=== PATIENT | male | born 1950 | race African-American/Black ===

== ENCOUNTER 2022-04-28 15:08 | Inpatient (IN) | payer OTHER ==
[2022-04-28 15:54] VITALS: BMI 26.8
[2022-04-28] MEDS ORDERED: guaiFENesin 200 MG/10 ML 10 ML UNIT-DOSE CUPS PO PRN (17:18)
[2022-04-28] MEDS ORDERED: BENZOCAINE/MENTHOL (CHLORASEPTIC ) LOZENGE MM PRN (17:18)
[2022-04-28] MEDS ORDERED: ONDANSETRON *ODT* 4 MG TABLET SL PRN (17:18)
[2022-04-28] MEDS ORDERED: MAG HYDROX/AL HYDROX/SIMETH 30 ML UNIT-DOSE CUP PO PRN (17:18)
[2022-04-28] MEDS ORDERED: MAGNESIUM HYDROX 2400MG/30ML ORAL SUSPENSION 30 ML CUP PO PRN (17:18)
[2022-04-28] MEDS ORDERED: LOPERAMIDE HCL 2 MG CAPSULE PO PRN (17:18)
[2022-04-28] MEDS ORDERED: BISMUTH SUBSALICYLATE 524 MG/30 ML PO PRN (17:18)
[2022-04-28] MEDS ORDERED: ACETAMINOPHEN 325 MG TABLET (FP) PO PRN (17:18)
[2022-04-28] MEDS ORDERED: P-EPHED 60MG/TRIPROLIDI 2.5MG TABLET PO PRN (17:18)
[2022-04-28] MEDS ORDERED: DICYCLOMINE HCL 10 MG CAPSULE PO PRN (17:18)
[2022-04-28] MEDS ORDERED: MAGNESIUM CITRATE 300 ML BOTTLE PO PRN (17:18)
[2022-04-28] MEDS ORDERED: methaDONE HCL 10 MG TABLET (FOR DETOX USE ONLY) PO ONE (17:22)
[2022-04-28] MEDS ORDERED: cloNIDine HCL 0.1 MG TABLET PO PRN (17:22)
[2022-04-28] MEDS ORDERED: IBUPROFEN 600 MG TABLET (FP) PO ONE (22:56)
[2022-04-28] MEDS ORDERED: methaDONE HCL 10 MG TABLET (FOR DETOX USE ONLY) ONE (22:56)
[2022-04-28] MEDS: IBUPROFEN 600 MG TABLET (FP) PO PRN (23:00)
[2022-04-28] MEDS: MELATONIN 5 MG TABLETS PO PRN (23:00)
[2022-04-28] MEDS: THIAMINE HCL 100 MG TABLET (FP) PO SCH (23:00)
[2022-04-29] MEDS ORDERED: IBUPROFEN 400 MG TABLET (FP) PO ONE (07:02)
[2022-04-29] MEDS: IBUPROFEN 400 MG TABLET (FP) PO PRN (07:04)
[2022-04-29] MEDS: glipiZIDE 5 MG TABLET (FP) PO SCH (07:05)
[2022-04-29] MEDS: metFORMIN HCL 500 MG TABLET (FP) PO SCH ×2 (07:05→18:40)
[2022-04-29] MEDS: INSULIN SLIDING SCALE (NOVOLOG) 1 VIAL SQ SCH ×4 (07:05→22:09)
[2022-04-29] MEDS ORDERED: ACETAMINOPHEN 325 MG TABLET (FP) ONE ×2 (08:13→08:14)
[2022-04-29] MEDS: ACETAMINOPHEN 325 MG TABLET (FP) PO PRN (08:19)
[2022-04-29] MEDS: METHOCARBAMOL 500 MG TABLET PO SCH ×2 (09:14→22:08)
[2022-04-29] MEDS ORDERED: amLODIPine BESYLATE 5 MG TABLET (FP) ONE (10:03)
[2022-04-29] MEDS ORDERED: methaDONE HCL 10 MG TABLET (FOR DETOX USE ONLY) ONE (10:03)
[2022-04-29] MEDS ORDERED: LISINOPRIL 10 MG TABLET ONE (10:04)
[2022-04-29] MEDS: PRENATAL VITAMINS W/ FOLIC ACID TABLET (FP) PO SCH (10:15)
[2022-04-29] MEDS: amLODIPine BESYLATE 10 MG TABLET (FP) PO SCH (10:15)
[2022-04-29] MEDS: LISINOPRIL 20 MG TABLET PO SCH (10:16)
[2022-04-29 10:45] LABS: ALBUMIN 3.5 g/dl (3.4-5.0); CALCIUM 9.4 mg/dL (8.5-10.1); HEMATOCRIT 38.5 % (35.4-49); HEMOGLOBIN 12.8 GM/dL (11.7-16.9); MCHC 33.1 g/dl (32.0-35.9); MEAN CELL VOLUME 78.3 fl (80-96); MEAN PLT VOLUME 7.7 fl (7.5-11.1); PLATELET COUNT 244 10^3/uL (134-434); RBC 4.92 M/mm3 (4.00-5.60); RDW 13.9 % (11.9-15.9); WHITE BLOOD COUNT 3.7 K/mm3 (4.0-10.0)
[2022-04-29 10:46] LABS: BLOOD UREA NITROGEN 7.8 mg/dL (7-18)
[2022-04-29 10:49] LABS: CREATININE 0.8 mg/dL (0.55-1.3)
[2022-04-29 10:50] LABS: BILIRUBIN,TOTAL 0.6 mg/dL (0.2-1); TOT PROT 7.1 g/dl (6.4-8.2)
[2022-04-29] MEDS: PANTOPRAZOLE 40 MG TABLET PO SCH (11:26)
[2022-04-29] MEDS: hydrOXYzine PAMOATE 25 MG CAPSULE (FP) PO PRN (18:42)
[2022-04-29] MEDS: ATORVASTATIN CA 10 MG TABLET (FP) PO SCH (22:08)
[2022-04-29] MEDS: THIAMINE HCL 100 MG TABLET (FP) PO SCH (22:08)
[2022-04-29] MEDS: MELATONIN 5 MG TABLETS PO PRN (22:09)
[2022-04-30] MEDS: ACETAMINOPHEN 325 MG TABLET (FP) PO PRN (05:14)
[2022-04-30] MEDS: INSULIN SLIDING SCALE (NOVOLOG) 1 VIAL SQ SCH ×4 (07:37→22:14)
[2022-04-30] MEDS: glipiZIDE 5 MG TABLET (FP) PO SCH (07:40)
[2022-04-30] MEDS: metFORMIN HCL 500 MG TABLET (FP) PO SCH ×2 (07:40→17:18)
[2022-04-30] MEDS ORDERED: methaDONE HCL 10 MG TABLET (FOR DETOX USE ONLY) PO ONE (10:00)
[2022-04-30] MEDS: amLODIPine BESYLATE 10 MG TABLET (FP) PO SCH (10:10)
[2022-04-30] MEDS: LISINOPRIL 20 MG TABLET PO SCH (10:10)
[2022-04-30] MEDS: PRENATAL VITAMINS W/ FOLIC ACID TABLET (FP) PO SCH (10:11)
[2022-04-30] MEDS: hydrOXYzine PAMOATE 25 MG CAPSULE (FP) PO PRN (10:11)
[2022-04-30] MEDS: PANTOPRAZOLE 40 MG TABLET PO SCH (10:11)
[2022-04-30] MEDS: METHOCARBAMOL 500 MG TABLET PO SCH ×2 (10:11→22:14)
[2022-04-30] MEDS: IBUPROFEN 400 MG TABLET (FP) PO PRN (17:21)
[2022-04-30] MEDS: ATORVASTATIN CA 10 MG TABLET (FP) PO SCH (22:14)
[2022-04-30] MEDS: THIAMINE HCL 100 MG TABLET (FP) PO SCH (22:14)
[2022-04-30] MEDS: MELATONIN 5 MG TABLETS PO PRN (22:15)
[2022-05-01] MEDS: IBUPROFEN 600 MG TABLET (FP) PO PRN ×2 (05:30→16:59)
[2022-05-01] MEDS: INSULIN SLIDING SCALE (NOVOLOG) 1 VIAL SQ SCH ×4 (07:10→22:24)
[2022-05-01] MEDS: glipiZIDE 5 MG TABLET (FP) PO SCH (07:11)
[2022-05-01] MEDS: metFORMIN HCL 500 MG TABLET (FP) PO SCH ×2 (07:12→16:59)
[2022-05-01] MEDS: PRENATAL VITAMINS W/ FOLIC ACID TABLET (FP) PO SCH (10:08)
[2022-05-01] MEDS: amLODIPine BESYLATE 10 MG TABLET (FP) PO SCH (10:09)
[2022-05-01] MEDS: LISINOPRIL 20 MG TABLET PO SCH (10:09)
[2022-05-01] MEDS: METHOCARBAMOL 500 MG TABLET PO SCH ×2 (10:09→21:56)
[2022-05-01] MEDS: PANTOPRAZOLE 40 MG TABLET PO SCH (10:09)
[2022-05-01] MEDS: hydrOXYzine PAMOATE 25 MG CAPSULE (FP) PO PRN ×2 (10:09→16:59)
[2022-05-01] MEDS: MELATONIN 5 MG TABLETS PO PRN (21:56)
[2022-05-01] MEDS: THIAMINE HCL 100 MG TABLET (FP) PO SCH (21:56)
[2022-05-01] MEDS: ATORVASTATIN CA 10 MG TABLET (FP) PO SCH (21:56)
[2022-05-02] MEDS: metFORMIN HCL 500 MG TABLET (FP) PO SCH ×2 (06:49→16:50)
[2022-05-02] MEDS: glipiZIDE 5 MG TABLET (FP) PO SCH (06:49)
[2022-05-02] MEDS: IBUPROFEN 400 MG TABLET (FP) PO PRN (06:59)
[2022-05-02] MEDS: INSULIN SLIDING SCALE (NOVOLOG) 1 VIAL SQ SCH ×4 (07:00→22:22)
[2022-05-02] MEDS: PRENATAL VITAMINS W/ FOLIC ACID TABLET (FP) PO SCH (10:50)
[2022-05-02] MEDS: PANTOPRAZOLE 40 MG TABLET PO SCH (10:51)
[2022-05-02] MEDS: LISINOPRIL 20 MG TABLET PO SCH (10:51)
[2022-05-02] MEDS: METHOCARBAMOL 500 MG TABLET PO SCH ×2 (10:51→22:22)
[2022-05-02] MEDS: amLODIPine BESYLATE 10 MG TABLET (FP) PO SCH (10:51)
[2022-05-02] MEDS: IBUPROFEN 600 MG TABLET (FP) PO PRN (11:01)
[2022-05-02] MEDS: THIAMINE HCL 100 MG TABLET (FP) PO SCH (22:22)
[2022-05-02] MEDS: MELATONIN 5 MG TABLETS PO PRN (22:22)
[2022-05-02] MEDS: ATORVASTATIN CA 10 MG TABLET (FP) PO SCH (22:22)
[2022-05-03] MEDS: INSULIN SLIDING SCALE (NOVOLOG) 1 VIAL SQ SCH (06:30)
[2022-05-03] MEDS: IBUPROFEN 600 MG TABLET (FP) PO PRN (06:30)
[2022-05-03] MEDS: metFORMIN HCL 500 MG TABLET (FP) PO SCH (06:31)
[2022-05-03] MEDS: glipiZIDE 5 MG TABLET (FP) PO SCH (06:31)
[2022-05-03 08:44] VITALS: BP 142/68; PULSE 70; TEMP 97.1
[2022-05-03] MEDS: PANTOPRAZOLE 40 MG TABLET PO SCH (09:39)
[2022-05-03] MEDS: METHOCARBAMOL 500 MG TABLET PO SCH (09:39)
[2022-05-03] MEDS: PRENATAL VITAMINS W/ FOLIC ACID TABLET (FP) PO SCH (09:39)
[2022-05-03] MEDS: amLODIPine BESYLATE 10 MG TABLET (FP) PO SCH (09:40)
[2022-05-03] MEDS: LISINOPRIL 20 MG TABLET PO SCH (09:40)
== END 2022-05-03 10:25 | disposition home or self-care (01) | DRG 896 ==
LOC: YASAS 15:08 → Y6N 04-29 09:50
PROVIDERS: ADMIT Allergy & Immunology; ATTEND Surgery
PROC: HZ2ZZZZ Detoxification Services for Substance Abuse Treatment (ICD-10-PCS; principal; 2022-04-29)
DX: F11.23 Opioid dependence with withdrawal (principal); U07.1 COVID-19; I10 Essential (primary) hypertension; E11.9 Type 2 diabetes mellitus without complications; E78.5 Hyperlipidemia, unspecified; K21.9 Gastro-esophageal reflux disease without esophagitis; M54.59 Other low back pain; G89.29 Other chronic pain; Z91.81 History of falling; Z87.891 Personal history of nicotine dependence; Z79.84 Long term (current) use of oral hypoglycemic drugs; Z96.89 Presence of other specified functional implants
CPT/HCPCS: 36415; 80053; 82962; 85027; 86780; 87811; 93005; 93010; C9803-CS; U0003; U0005